=== PATIENT | female | born 1985 | race Caucasian/White ===

== ENCOUNTER 2018-01-25 06:47 | Day surgery (SDC) | payer OTHER ==
[~2018-01-25 06:47] MED LIST: CLINDAMYCIN 600 MG/D5W (PMX) 50 ML IVPB; SOD CHLORIDE 0.9% 1,000 ML IV
[2018-01-25] MEDS ORDERED: PROPOFOL 20 ML (11:29)
[2018-01-25] MEDS ORDERED: LIDOCAINE 2% (SDV) 5 ML INJ (11:29)
[2018-01-25] MEDS ORDERED: FENTAnyl 50 MCG/ML VIAL (11:29)
[2018-01-25] MEDS ORDERED: MIDAZOLAM 1 MG/ML 2 ML INJ (11:29)
[2018-01-25] MEDS ORDERED: ONDANSETRON 4 MG INJ IV (11:30)
[2018-01-25] MEDS ORDERED: OXYCODONE/ACETAMINOPHEN (5/325) TAB PO (11:30)
[2018-01-25] MEDS ORDERED: DIPHENHYDRAMINE 50 MG INJ IV (11:30)
[2018-01-25] MEDS ORDERED: LABETALOL HCL 20MG INJ IV (11:30)
[2018-01-25] MEDS ORDERED: hydrALAzine 20 MG INJ IV (11:30)
[2018-01-25] MEDS ORDERED: FENTAnyl 50 MCG/ML VIAL IV ×3 (11:30)
[2018-01-25] MEDS ORDERED: PROCHLORPERAZINE 10 MG INJ IV (11:30)
[2018-01-25] MEDS ORDERED: HYDROmorphONE 1 MG/5 ML IV SYRINGE IV ×3 (11:30)
[2018-01-25] MEDS ORDERED: MEPERIDINE 25 MG INJ IV (11:30)
[2018-01-25] MEDS ORDERED: CLINDAMYCIN 600 MG/D5W (PMX) 50 ML IVPB (11:37)
[2018-01-25] MEDS ORDERED: DEXAMETHASONE 4 MG/ML 1 ML INJ (11:43)
[2018-01-25] MEDS ORDERED: ONDANSETRON 4 MG INJ (11:43)
[2018-01-25] MEDS ORDERED: FAMOTIDINE 20 MG INJ (11:43)
[2018-01-25] MEDS: BUPIVACAINE 0.25% (MPF) 30 ML INJ (12:04)
[2018-01-25] MEDS ORDERED: HYDROCODONE/APAP (5/325) TAB PO (12:30)
[2018-02-01] MEDS ORDERED: ROPIVACAINE 0.5 % 30 ML VIAL (10:17)
== END 2018-01-25 14:25 | disposition home or self-care (01) ==
LOC: SDS 06:47
DX: N60.12 Diffuse cystic mastopathy of left breast (principal); N62 Hypertrophy of breast
CPT/HCPCS: 14001; 84703; 88307